=== PATIENT | female | born 1955 | race African-American/Black ===

== ENCOUNTER 2018-08-28 09:15 | Inpatient (IN) | payer MEDICARE, MEDICAID ==
[~2018-08-28] VITALS: Ht 162.6 cm; Wt 76.5 kg
[2018-08-28] MEDS ORDERED: CLARITIN 10 MG10 MG PO (09:33)
[2018-08-28] MEDS ORDERED: PHOSLO667 MG PO (09:33)
[2018-08-28] MEDS ORDERED: ZOCOR40 MG PO (09:34)
[2018-08-28] MEDS ORDERED: NORVASC10 MG PO (09:34)
[2018-08-28] MEDS ORDERED: HYDRALAZINE HC100 MG PO (09:35)
[2018-08-28] MEDS ORDERED: IMODIUM2 MG PO (09:36)
[2018-08-28] MEDS ORDERED: LASIX80 MG PO (09:36)
[2018-08-28] MEDS ORDERED: COMBIGAN OPHT DR5 ML EACH EYE (09:37)
[2018-08-28] MEDS ORDERED: VITAMIN D250000 UNIT PO (09:37)
[2018-08-28] MEDS ORDERED: XALATAN 0.0052.5 ML EACH EYE (09:38)
[2018-08-28] MEDS ORDERED: HUMALOG 30100 UNITS/ SC (09:40)
[2018-08-28] MEDS ORDERED: LANTUS SOL100 UNIT/1 SC (09:40)
[2018-08-28 09:46] VITALS: BP 128/48
[2018-08-28 09:54] LABS: BASOPHILS 0.2 % (0-2); EOSINOPHILS 0.3 % (0-7); HEMATOCRIT 22.2 % (36.0-48.0); IMMATURE GRANULOCYTES 0.4 % (0-5); LYMPHOCYTES 9.6 % (15-50); MCH 25.5 pg (26.0-34.0); MCHC 31.5 g/dL (31.0-37.0); MEAN PLATELET VOLUME 10.2 fL (7.4-10.4); MONOCYTES 7.9 % (2-11); NEUTROPHILS 81.6 % (40-80); PLATELET COUNT 302 10x3/uL (130-400); RBC 2.74 10x6/uL (4.00-5.40); RDW 15.2 % (11.5-14.5); WBC 12.1 10x3/uL (4.8-10.8)
[2018-08-28 10:12] LABS: ANION GAP 29.2 mmol/L (8-16); CALCIUM 8.4 mg/dL (8.5-10.1); CARBON DIOXIDE 14.4 mmol/L (21.0-32.0); CREATININE - SERUM 14.8 mg/dL (0.6-1.3)
[2018-08-28 10:16] LABS: POTASSIUM - SERUM 6.6 mmol/L (3.5-5.1)
[2018-08-28 10:20] VITALS: BP 119/51
[2018-08-28 11:44] VITALS: BP 126/53; BMI 29.9
--- NOTE | 2018-08-28 17:25 | MORECARE ---
CASE MANAGEMENT DISCHARGE SUMMARY PATIENT: NARGIS ASTUDILLO UNIT: [id number] ADM DATE: 08/28/18 AGE: 62 : 57 SEX: F ROOM/BED: D.2103 AUTHOR: CARLOS CASTAÑEDA PHYSICIAN: REFERRING PHYSICIAN: ANGELA RODRIGUEZ MD DATE OF SERVICE: 08/28/18 Discharge Plan Patient Name: NARGIS ASTUDILLO [facility] [facility] 1955 Planned Disposition: Home Anticipated Discharge Date: 08/30/18 Discharge Date: Expected LOS: 2 Initial Reviewer: [email or web address] Initial Review Date: 08/28/2018 Generated: 08/28/18 6:24 pm Patient Name: NARGIS ASTUDILLO Page 00654 at 1725 All edits/amendments must be made on the electronic document DICTATION DATE: 08/28/181723 MANAGER PROVIDER RELATIONS: PAUL 08/28/181723 RPT#: [id number] DC DATE: STATUS: ADM IN [facility] [address] [place] [address] END OF REPORT
--- NOTE | 2018-08-28 17:33 | MORECARE ---
CASE MANAGEMENT DISCHARGE SUMMARY PATIENT: NARIGS ASTUDILLO UNIT: [id number] ADM DATE: 08/28/18 AGE: 62 : 57 SEX: F ROOM/BED: D.2103 AUTHOR: CARLOS CASTAÑEDA PHYSICIAN: REFERRING PHYSICIAN: ANGELA RODRIGUEZ MD DATE OF SERVICE: 08/28/18 Discharge Plan Patient Name: NARGIS ASTUDILLO [facility] [facility] 1955 Planned Disposition: Home Anticipated Discharge Date: 08/30/18 Discharge Date: Expected LOS: 2 Initial Reviewer: [email or web address] Initial Review Date: 08/28/2018 Generated: 08/28/18 6:33 pm DCPIA - Discharge Planning Initial Assessment Updated by [email or web address]: Sharri Sotelo on 08/28/18 5:27 pm * Is the patient Alert and Oriented? Yes * PCP Dr. Trip Luis - Renal * Pharmacy [facility] * Preadmission Environment Home with Family * ADLs Independent * Equipment Rolling Walker * List name and contact numbers for known caregivers / representatives who currently or will assist patient after discharge: Leanne Coulter - daughter - [phone] Salina Estrella - daughter - [phone] Davie Albright - daughter - [phone] * Verbal permission to speak to the caregivers and representatives has been obtained from the patient. Yes * Community resources currently utilized Other * Please name any agencies selected above. [facility] - Dialysis in [place] * Additional services required to return to the preadmission environment? No * Can the patient safely return to the preadmission environment? Yes * Has this patient been hospitalized within the prior 30 days at any hospital? No Last DP export: 08/28/18 4:25 p Patient Name: NARGIS ASTUDILLO Page 34938 at 1733 All edits/amendments must be made on the electronic document DICTATION DATE: 08/28/181732 WASTEWATER ANALYST LAB ANALYST: PAUL 08/28/181732 RPT#: [id number] DC DATE: STATUS: ADM IN [facility] [address] [place] [address] END OF REPORT
--- NOTE | 2018-08-28 17:41 | MORECARE ---
CASE MANAGEMENT DISCHARGE SUMMARY PATIENT: NARGIS ASTUDILLO UNIT: [id number] ADM DATE: 08/28/18 AGE: 62 : 57 SEX: F ROOM/BED: D.2108 AUTHOR: CARLOS CASTAÑEDA PHYSICIAN: REFERRING PHYSICIAN: ANGELA RODRIGUEZ MD DATE OF SERVICE: 08/28/18 Discharge Plan Patient Name: NARGIS ASTUDILLO Facility: [facility]:[place] : 1955 Planned Disposition: Home Anticipated Discharge Date: 08/30/18 Discharge Date: Expected LOS: 2 Initial Reviewer: [email or web address] Initial Review Date: 08/28/2018 Generated: 08/28/18 6:40 pm Comments DCP- Discharge Planning Updated by [email or web address]: Sharri Sotleo on 08/28/18 4:[address] Patient Name: NARGIS ASTUDILLO Admission Status: ER Accout number: [id number] Admission Date: 08-28-2018 : 1955 Admission Diagnosis: Attending: ANGELA RODRIGUEZ Current LOS: 1 Anticipated DC Date: 08-30-2018 Planned Disposition: Home Primary Insurance: [facility] MEDICARE SOLUTIONS Discharge Planning Comments: CM met with patient to complete initial dc planning assessment. CM educated patient on the CM role and verbal consent given by patient to complete assessment. Patient lives at home with her daughter. She reports she is mostly independent in her care. Her brother takes her to and from dialysis. Her daughter will transport her home at discharge. At discharge patient plans to return home and feels this is a safe discharge. CM discussed availability of home health, rehab services, and medical equipment. Patient denied known discharge needs at this time. Patient reports she is still able to drive and that she is not home bound. She reports compliance with her dialysis but her fistula wouldn't allow her to have a full treatment on Saturday. CM will continue to follow and will assist as needed with dc plans/needs. Prosthetist: Sharri Sotelo DCPIA - Discharge Planning Initial Assessment Updated by [email or web address]: Sharri Sotelo on 08/28/18 5:27 pm * Is the patient Alert and Oriented? Yes * PCP Dr. Trip Luis - Renal * Pharmacy [facility] * Preadmission Environment Home with Family * ADLs Independent * Equipment Rolling Walker * List name and contact numbers for known caregivers / representatives who currently or will assist patient after discharge: Leanne Coulter - daughter - [phone] Salina Estrella - daughter - [phone] Davie Albright - daughter - [phone] * Verbal permission to speak to the caregivers and representatives has been obtained from the patient. Yes * Community resources currently utilized Other * Please name any agencies selected above. [facility] - Dialysis in [place] * Additional services required to return to the preadmission environment? No * Can the patient safely return to the preadmission environment? Yes * Has this patient been hospitalized within the prior 30 days at any hospital? No Last DP export: 08/28/18 4:33 p Patient Name: NARGIS ASTUDILLO Page [id number] at 1741 All edits/amendments must be made on the electronic document DICTATION DATE: 08/28/181739 ARMATURE STRAIGHTENER: PAUL 08/28/181739 RPT#: [id number] DC DATE: STATUS: ADM IN [facility] [address] [place] [address] END OF REPORT
[2018-08-28 20:00] VITALS: BP 145/61
[2018-08-29 04:00] VITALS: BP 140/56
[2018-08-29 04:46] LABS: BASOPHILS 0.1 % (0-2); EOSINOPHILS 1.3 % (0-7); HEMATOCRIT 24.7 % (36.0-48.0); HEMOGLOBIN 8.3 g/dL (12-16); IMMATURE GRANULOCYTES 0.4 % (0-5); LYMPHOCYTES 15.1 % (15-50); MCH 26.7 pg (26.0-34.0); MCHC 33.6 g/dL (31.0-37.0); MCV 79.4 fL (80.0-100.0); MEAN PLATELET VOLUME 9.2 fL (7.4-10.4); MONOCYTES 12.2 % (2-11); NEUTROPHILS 70.9 % (40-80); PLATELET COUNT 309 10x3/uL (130-400); RBC 3.11 10x6/uL (4.00-5.40); RDW 15.1 % (11.5-14.5); WBC 13.8 10x3/uL (4.8-10.8)
[2018-08-29 04:58] LABS: CALCIUM 8.4 mg/dL (8.5-10.1)
[2018-08-29 04:59] LABS: ANION GAP 18.3 mmol/L (8-16); CARBON DIOXIDE 24.7 mmol/L (21.0-32.0); CREATININE - SERUM 9.3 mg/dL (0.6-1.3)
[2018-08-29 07:44] VITALS: BP 137/40
[2018-08-29 10:17] VITALS: Ht 162.6 cm; Wt 76.5 kg
[2018-08-29 16:12] VITALS: BP 168/54
[2018-08-29] MEDS ORDERED: GABAPENTIN100 MG PO (20:54)
[2018-08-29 21:01] VITALS: BP 134/51
[2018-08-30 00:59] VITALS: BP 140/62
[2018-08-30 04:54] LABS: BASOPHILS 0.2 % (0-2); EOSINOPHILS 1.7 % (0-7); HEMATOCRIT 24.9 % (36.0-48.0); HEMOGLOBIN 8.2 g/dL (12-16); IMMATURE GRANULOCYTES 0.4 % (0-5); LYMPHOCYTES 18.2 % (15-50); MCH 26.5 pg (26.0-34.0); MCHC 32.9 g/dL (31.0-37.0); MCV 80.3 fL (80.0-100.0); MEAN PLATELET VOLUME 9.6 fL (7.4-10.4); MONOCYTES 16.5 % (2-11); PLATELET COUNT 321 10x3/uL (130-400); WBC 13.7 10x3/uL (4.8-10.8)
[2018-08-30 05:11] LABS: ANION GAP 19.8 mmol/L (8-16); CALCIUM 7.7 mg/dL (8.5-10.1); CARBON DIOXIDE 22.4 mmol/L (21.0-32.0); CREATININE - SERUM 11.1 mg/dL (0.6-1.3); POTASSIUM - SERUM 4.2 mmol/L (3.5-5.1)
[2018-08-30 05:52] VITALS: BP 146/60
[2018-08-30 07:58] VITALS: BP 146/44
--- NOTE | 2018-09-01 08:58 | MORECARE ---
CASE MANAGEMENT DISCHARGE SUMMARY PATIENT: NARGIS ASTUDILLO UNIT: [id number] ADM DATE: 08/28/18 AGE: 62 : 57 SEX: F ROOM/BED: D.2106 AUTHOR: CARLOS CASTAÑEDA PHYSICIAN: REFERRING PHYSICIAN: ANGELA RODRIGUEZ MD DATE OF SERVICE: 09/01/18 Discharge Plan Patient Name: NARGIS ASTUDILLO [facility]:[place] : 1955 Planned Disposition: Home Anticipated Discharge Date: 08/30/18 Discharge Date: 08/30/2018 Expected LOS: 2 Initial Reviewer: [email or web address] Initial Review Date: 08/28/2018 Generated: 09/01/18 9:57 am Comments DCP- Discharge Planning Updated by [email or web address]: Sharri Sotelo on 08/28/18 4:[address] Patient Name: NARGIS ASTUDILLO Admission Status: ER Accout number: [id number] Admission Date: 08-28-2018 : 1955 Admission Diagnosis: Attending: ANGELA RODRIGUEZ Current LOS: 1 Anticipated DC Date: 08-30-2018 Planned Disposition: Home Primary Insurance: [facility] MEDICARE SOLUTIONS Discharge Planning Comments: CM met with patient to complete initial dc planning assessment. CM educated patient on the CM role and verbal consent given by patient to complete assessment. Patient lives at home with her daughter. She reports she is mostly independent in her care. Her brother takes her to and from dialysis. Her daughter will transport her home at discharge. At discharge patient plans to return home and feels this is a safe discharge. CM discussed availability of home health, rehab services, and medical equipment. Patient denied known discharge needs at this time. Patient reports she is still able to drive and that she is not home bound. She reports compliance with her dialysis but her fistula wouldn't allow her to have a full treatment on Saturday. CM will continue to follow and will assist as needed with dc plans/needs. Geospatial Image Analyst: Sharri Sotelo DCPIA - Discharge Planning Initial Assessment Updated by [email or web address]: Sharri Sotelo on 08/28/18 5:27 pm * Is the patient Alert and Oriented? Yes * PCP Dr. Trip Luis - Renal * Pharmacy [facility] * Preadmission Environment Home with Family * ADLs Independent * Equipment Rolling Walker * List name and contact numbers for known caregivers / representatives who currently or will assist patient after discharge: Leanne Coulter - daughter - [phone] Salina Estrella - daughter - [phone] Davie Albright - daughter - [phone] * Verbal permission to speak to the caregivers and representatives has been obtained from the patient. Yes * Community resources currently utilized Other * Please name any agencies selected above. [facility] - Dialysis in [place] * Additional services required to return to the preadmission environment? No * Can the patient safely return to the preadmission environment? Yes * Has this patient been hospitalized within the prior 30 days at any hospital? No Coverage Notice Reviewer: [email or web address] Cassandra Amaya Notice Issued Date-Time: 08/30/2018 14:45 Notice Type: IM Discharge Notice Notice Delivered To: Patient Relationship to Patient: Self [employer] Name: Delivery Method: HAND - Hand Delivered Deepa Days: Prior Verbal Notification: Recipient Understood Notice: Yes Recipient Signature: Yes Med Rec Note Co-signed by Attending: Coverage Notice Comment: CM DISCUSSED DISCHARGE IMM. PATIENT WAS SHAKING HER HEAD THAT SHE UNDERSTOOD. SHE IS VERY ANXIOUS TO BE DISCHARGED. STATED SHE UNDERSTOOD. COPY TO THE PATIENT. SIGNED COPY TO THE HARD COVER CHART Last DP export: 08/28/18 4:41 p Patient Name: NARGIS ASTUDILLO Page [id number] at 0858 All edits/amendments must be made on the electronic document DICTATION DATE: 09/01/1857 FELTER TENNIS BALLS: PAUL 09/01/1857 RPT#: [id number] DC DATE:08/30/18 STATUS: DIS IN [facility] [address] [place] [address] END OF REPORT
== END 2018-08-30 15:09 | disposition home or self-care (01) | DRG 640 ==
LOC: D.ER 09:15 → D.M2 11:08
PROVIDERS: Emergency Medicine; ADMIT Internal Medicine Nephrology; ATTEND Internal Medicine Nephrology
PROC: 5A1D70Z Performance of Urinary Filtration, Intermittent, Less than 6 Hours Per Day (ICD-10-PCS; principal; 2018-08-28)
DX: E87.5 Hyperkalemia (principal); N18.6 End stage renal disease; I13.2 Hypertensive heart and chronic kidney disease with heart failure and with stage 5 chronic kidney disease, or end stage renal disease; I95.9 Hypotension, unspecified; E11.22 Type 2 diabetes mellitus with diabetic chronic kidney disease; I50.9 Heart failure, unspecified; Z99.2 Dependence on renal dialysis; E11.40 Type 2 diabetes mellitus with diabetic neuropathy, unspecified; K58.9 Irritable bowel syndrome, unspecified; F32.9 Major depressive disorder, single episode, unspecified; F41.9 Anxiety disorder, unspecified